=== PATIENT | female | born 2005 | race Caucasian/White ===

== ENCOUNTER 2023-10-16 22:43 | Emergency (ER) | payer OTHER ==
[2023-10-16 23:03] VITALS: BP 130/77; PULSE 106; RESP 17; TEMP 98.5; BMI 23.6
[2023-10-17] MEDS ORDERED: DEXAMETHASONE SOD PHOSPHATE 10 MG/1 ML VIAL ONE (01:06)
[2023-10-17] MEDS ORDERED: ALBUTEROL SO4 2.5/IPRATROPIUM 0.5 INH SOL 3 ML VIAL.NEB. NEB ONE (01:06)
[2023-10-17] MEDS: LACTATED RINGERS SOLUTION 1000 ML INFUS.BAG IV ONE (01:30)
[2023-10-17] MEDS: DEXAMETHASONE SOD PHOSPHATE 10 MG/1 ML VIAL IVPUSH ONE (01:30)
[2023-10-17 01:35] LABS: BASO % 0.6 % (0-2.0); EOS % 2.7 % (0-4.5); HEMATOCRIT 31.6 % (32.4-45.2); HEMOGLOBIN 10.3 GM/dL (10.7-15.3); LYMPH % 19.2 % (8-40); MCH 22.7 pg (25.7-33.7); MCHC 32.5 g/dl (32.0-36.0); MEAN PLT VOLUME 8.7 fl (7.5-11.1); MONO % 8.8 % (3.8-10.2); NEUT % 68.7 % (42.8-82.8); PLATELET COUNT 252 10^3/uL (134-434); RBC 4.51 M/mm3 (3.60-5.2); RDW 15.3 % (11.6-15.6); WHITE BLOOD COUNT 8.9 K/mm3 (4.0-10.0)
[2023-10-17] MEDS: ALBUTEROL SO4 2.5/IPRATROPIUM 0.5 INH SOL 3 ML VIAL.NEB. NEB ONE (01:38)
[2023-10-17 01:45] LABS: INR 1.07 (0.83-1.09); PROTHROMBIN TIME (PATIENT) 12.4 SEC (9.7-13.0)
[2023-10-17 01:48] LABS: ACTIVATED PTT 30.3 SECONDS (25.2-36.5)
[2023-10-17 01:59] LABS: POTASSIUM 4.3 mmol/L (3.5-5.1)
[2023-10-17 02:01] LABS: ALBUMIN 3.7 g/dl (3.4-5.0); BLOOD UREA NITROGEN 8.1 mg/dL (7-18)
[2023-10-17 02:04] LABS: CREATININE 0.7 mg/dL (0.55-1.3)
[2023-10-17 02:06] LABS: BILIRUBIN,TOTAL 0.3 mg/dL (0.2-1); TOT PROT 7.6 g/dl (6.4-8.2)
== END 2023-10-17 02:48 | disposition home or self-care (01) ==
LOC: JER 22:43
PROC: 3E030GC Introduction of Other Therapeutic Substance into Peripheral Vein, Open Approach (ICD-10-PCS; principal; 2023-10-17)
PROC: 3E0F7GC Introduction of Other Therapeutic Substance into Respiratory Tract, Via Natural or Artificial Opening (ICD-10-PCS; 2023-10-17)
DX: J06.9 Acute upper respiratory infection, unspecified (principal); B97.89 Other viral agents as the cause of diseases classified elsewhere; R05.9 Cough, unspecified; R09.81 Nasal congestion; J02.9 Acute pharyngitis, unspecified; R06.02 Shortness of breath; R06.82 Tachypnea, not elsewhere classified; R00.0 Tachycardia, unspecified; Z20.822 Contact with and (suspected) exposure to COVID-19
CPT/HCPCS: 0241U-QW; 36415; 71045-TC-FY; 80053; 83735; 84484; 84703; 85025; 85379; 85610; 85730; 93005; 93010; 99285-25; J1100

== ENCOUNTER 2023-12-31 23:34 | Emergency (ER) | payer OTHER ==
[2023-12-31 23:47] VITALS: BP 119/71; PULSE 88; RESP 16; TEMP 98.8; BMI 24.9
[2024-01-01 01:24] LABS: BASO % 0.5 % (0-2.0); EOS % 3.8 % (0-4.5); HEMATOCRIT 32.7 % (32.4-45.2); HEMOGLOBIN 10.7 GM/dL (10.7-15.3); LYMPH % 36.5 % (8-40); MCH 22.3 pg (25.7-33.7); MCHC 32.5 g/dl (32.0-36.0); MEAN CELL VOLUME 68.5 fl (80-96); MEAN PLT VOLUME 9.2 fl (7.5-11.1); MONO % 9.6 % (3.8-10.2); NEUT % 49.6 % (42.8-82.8); PLATELET COUNT 244 10^3/uL (134-434); RBC 4.78 M/mm3 (3.60-5.2); RDW 15.5 % (11.6-15.6); WHITE BLOOD COUNT 7.1 K/mm3 (4.0-10.0)
== END 2024-01-01 02:16 | disposition home or self-care (01) ==
LOC: JER 23:34
DX: R07.89 Other chest pain (principal); R05.9 Cough, unspecified; R11.2 Nausea with vomiting, unspecified; M79.10 Myalgia, unspecified site; U07.1 COVID-19
CPT/HCPCS: 36415; 85025; 87635; 99283-25

== ENCOUNTER 2024-04-08 17:33 | Emergency (ER) | payer OTHER ==
[2024-04-08 17:38] VITALS: BP 122/83; PULSE 62; RESP 18; TEMP 98.5; BMI 28.3
[2024-04-08 18:34] LABS: BASO % 0.6 % (0-2.0); EOS % 1.7 % (0-4.5); HEMATOCRIT 32.1 % (32.4-45.2); HEMOGLOBIN 10.2 GM/dL (10.7-15.3); LYMPH % 28.1 % (8-40); MCH 21.8 pg (25.7-33.7); MCHC 31.9 g/dl (32.0-36.0); MEAN CELL VOLUME 68.4 fl (80-96); MEAN PLT VOLUME 8.7 fl (7.5-11.1); NEUT % 63.6 % (42.8-82.8); PLATELET COUNT 290 10^3/uL (134-434); RBC 4.69 M/mm3 (3.60-5.2)
[2024-04-08 18:40] LABS: ADD RBC MORPHOLOGY YES
[2024-04-08 20:10] LABS: ANISOCYTOSIS 3+; MACROCYTOSIS 0; OVALOCYTE 2+
== END 2024-04-08 19:03 | disposition home or self-care (01) ==
LOC: JERFT 17:33
DX: R42 Dizziness and giddiness (principal); R53.83 Other fatigue; R06.02 Shortness of breath; R00.2 Palpitations; R55 Syncope and collapse
CPT/HCPCS: 36415; 85025; 99283-25

== ENCOUNTER 2024-07-14 22:12 | Emergency (ER) | payer OTHER ==
[2024-07-14 22:21] VITALS: RESP 18; BMI 25.0
[2024-07-14] MEDS ORDERED: ACETAMINOPHEN 325 MG TABLET (FP) ONE (22:52)
[2024-07-14] MEDS: ACETAMINOPHEN 325 MG TABLET (FP) PO ONE (22:57)
[2024-07-14 23:48] VITALS: BP 114/61; PULSE 126; TEMP 100.8
== END 2024-07-15 00:14 | disposition home or self-care (01) ==
LOC: JER 22:12
DX: J10.1 Influenza due to other identified influenza virus with other respiratory manifestations (principal); R51.9 Headache, unspecified; R05.9 Cough, unspecified; R50.9 Fever, unspecified; M79.10 Myalgia, unspecified site; R09.82 Postnasal drip; Z20.822 Contact with and (suspected) exposure to COVID-19
CPT/HCPCS: 0241U-QW; 71046-TC-FY; 93005; 93010; 99285-25